=== PATIENT | female | born 1980 | race Caucasian/White ===

== ENCOUNTER 2024-07-09 00:17 | Emergency (ER) | payer OTHER ==
[2024-07-09] MEDS ORDERED: ONDANSETRON 4 MG/2 ML VIAL ONE (01:30)
[2024-07-09] MEDS ORDERED: MORPHINE 4 MG/ML SYR ONE (01:31)
[2024-07-09] MEDS ORDERED: GUAIFENESIN/DM 5 ML UCUP ONE (01:31)
[2024-07-09] MEDS ORDERED: NA CHLORIDE 0.9% 1,000 ML ONE (01:32)
[2024-07-09 02:14] LABS: PT Prothrombin Time 10.7 SECONDS (9.4-12.5); Protime INR 0.95
[2024-07-09 02:16] LABS: Absolute Basophils 0.1 K/uL (0-0.5); Absolute Eosinophils 0.4 K/uL (0-0.5); Absolute Monocytes 0.7 K/uL (0.1-1.3); Absolute Neutrophil 5.5 K/uL (1.8-8.0); Basophils % 0.6 % (0-1.3); Eosinophils % 4.9 % (0-4.4); Hematocrit 37.5 % (36.0-45.0); Hemoglobin 12.6 g/dL (12.0-15.0); Lymphocytes % 22.8 % (15.3-44.8); MCH 31.8 pg (27.0-35.0); MCHC 33.7 g/dL (32.0-36.0); MCV 94.4 fL (80-100); MPV 8.1 fL (7.6-11.3); Monocytes % 8.2 % (3.3-12.3); Neutrophils % 63.5 % (41.7-73.7); Nucleated Red Blood Cells % 0.1 % (0-0); Platelets 279 thou/uL (152-406); RBC Red Blood Cell Count 3.97 M/uL (3.86-4.86); Red Cell Distribution Width 13.3 % (12.1-15.2)
[2024-07-09 02:36] LABS: Albumin 3.3 g/dL (3.4-5.0); Albumin/Globulin Ratio 0.8 (1.1-1.8); Anion Gap 8.7 mEq/L (5.0-15.0); Bilirubin Direct 0.2 mg/dL (0-0.2); Bilirubin Indirect, Calculated 0.4 mg/dL (0.2-0.8); Bilirubin Total 0.6 mg/dL (0.2-1.0); Globulin 4.1 g/dL (2.3-3.5); Potassium 3.7 mEq/L (3.5-5.1); Protein, Total 7.4 g/dL (6.4-8.2); Troponin High Sensitivity 9.7 pg/mL (<58.9)
--- NOTE | 2024-07-09 06:02 | RAD REPORT ---
EXAM DESCRIPTION: Chest Single View CLINICAL HISTORY: 44 years Female, CHEST PAIN TECHNIQUE: 1 view (Single frontal view of the chest) COMPARISON: None. FINDINGS: LINES AND TUBES: None. CARDIOVASCULAR STRUCTURES: Normal heart size. No pulmonary venous congestion. LUNGS: No confluent areas of acute consolidation. PLEURA: No layering pleural effusions. No pneumothorax. BONES: No acute osseous abnormality of the thorax. IMPRESSION: 1. No acute cardiopulmonary disease. Electronically signed by: Matias Roca MD 07/09/2024 01:32 AM [facility] N Due to temporary technical issues with the PACS/GridPoint reporting system, reports are being eduardo d by the in-house radiologist without review as a courtesy to ensure prompt reporting the interpreting radiologist is fully responsible for the content of the report. Transcribed Date/Time: 07/09/2024 6:02 AM
--- NOTE | 2024-07-09 06:10 | EDPHYS ---
Physician Documentation [facility] Name: Rosa Moulton Age: 44 yrs Sex: Female : 1980 Arrival Date: 07/09/2024 Time: 00:17 Bed 7 Private MD: ED Physician Glen Plunkett HPI: 07/09 00:42 This 44 yrs old Other Race Female presents to ER via Unassigned with complaints of Pain sp4 All Over, Chest Pain. 06:13 Patient reports that on 06/26/2024 she fell off the roof and had to be airlifted to [address] for acute management of traumatic injury. Since then patient has developed moderate chest pain associated with dyspnea. Patient then reports that she had right distal radius fracture with displacement and this was fixed via open reduction internal fixation. 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 - Infectious Disease History:: Denies. - Social history:: Smoking status: Patient reports the use of cigarette tobacco products, smokes one-half pack cigarettes per day, Patient/guardian denies using alcohol, street drugs. - Family history:: not pertinent. ROS: 06:13 Constitutional: Negative for fever, chills, and weight loss, Cardiovascular: Positive sp4 chest wall pain, positive difficulty breathing 06:13 All other systems are negative, Exam: 06:10 Constitutional: This is a well developed, well nourished patient who is awake, alert, sp4 and in no acute distress. Head/Face: Normocephalic, atraumatic. Eyes: Pupils equal round and reactive to light, extra-ocular motions intact. Lids and lashes normal. Conjunctiva and sclera are not injected. Cornea within normal limits. Periorbital areas with no swelling, redness, or edema. ENT: Nares patent. No nasal discharge, no septal abnormalities noted. Tympanic membranes are normal and external auditory canals are clear. Oropharynx with no redness, swelling, or masses, exudates, or evidence of obstruction, uvula midline. Mucous membranes moist. Neck: Trachea midline, no thyromegaly or masses palpated, and no cervical lymphadenopathy. Supple, full range of motion without nuchal rigidity, or vertebral point tenderness. Chest/axilla: Normal chest wall appearance and motion. Nontender with no deformity. No lesions are appreciated. Cardiovascular: Regular rate and rhythm with a normal S1 and S2. No gallops, murmurs, or rubs. Normal PMI, no JVD. No pulse deficits. Respiratory: Lungs have equal breath sounds bilaterally, clear to auscultation and percussion. No rales, rhonchi or wheezes noted. No increased work of breathing, no retractions or nasal flaring. Abdomen/GI: Soft, with normal bowel sounds. No distension or tympany. No guarding or rebound. No evidence of tenderness throughout. Back: No spinal tenderness. No costovertebral tenderness. Skin: Warm, dry with normal turgor. Normal color with no rashes, no lesions, and no evidence of cellulitis. MS/ Extremity: Pulses equal, no cyanosis. Neurovascular intact. Full, normal range of motion. Neuro: Awake and alert, GCS 15, oriented to person, place, time, and situation. Cranial nerves II-XII grossly intact. Motor strength 5/5 in all extremities. Sensory grossly intact. Psych: Awake, alert, with orientation to person, place and time. Behavior, mood, and affect are within normal limits 06:10 ECG was reviewed by the Attending Physician. EKG at 0048 normal sinus rhythm, normal EKG. Vital Signs: 00:37 BP 151 / 105; Pulse 95; Resp 17 S; Temp 98.6(O); Pulse Ox 99% on R/A; Weight 46.27 kg lg3 (R); Height 5 ft. 0 in. (R); Pain 9/10; 01:30 BP 136 / 97; Pulse 80; Resp 18; Pulse Ox 97% on R/A; ay 01:30 BP 144 / 95; Pulse 85; Resp 18; Pulse Ox 99% on R/A; ay 02:30 BP 147 / 90; Pulse 86; Resp 17 S; Pulse Ox 100% on R/A; ha1 04:00 BP 138 / 78; Pulse 80; Resp 17 S; Pulse Ox 97% on R/A; ha1 05:30 BP 118 / 82; Pulse 80; Resp 13 S; Pulse Ox 94% ; ay 06:00 BP 164 / 90; Pulse 86; Resp 18; Pulse Ox 96% on R/A; ay 00:37 Body Mass Index 19.92 (46.27 kg, 152.4 cm) lg3 00:37 Pain Scale: Adult lg3 [place] Coma Score: 06:13 Eye Response: spontaneous(4). Motor Response: obeys commands(6). Verbal Response: sp4 oriented(5). Total: 15. MDM: 00:57 Medical Screening Exam initiated sp4 02:38 ED course: EXAM DESCRIPTION: Chest Single View CLINICAL HISTORY: 44 years Female, CHEST sp4 PAIN TECHNIQUE: 1 view (Single frontal view of the chest) COMPARISON: None. FINDINGS: LINES AND TUBES: None. CARDIOVASCULAR STRUCTURES: Normal heart size. No pulmonary venous congestion. LUNGS: No confluent areas of acute consolidation. PLEURA: No layering pleural effusions. No pneumothorax. BONES: No acute osseous abnormality of the thorax. IMPRESSION: 1. No acute cardiopulmonary disease. . 06:03 ED course: CLINICAL HISTORY: Chest pain. COMPARISON: XR Chest 07/09/2024. TECHNIQUE: CT sp4 CHESTABDOMEN PELVIS WITH IV CONTRAST on 07/09/2024 12:51 AM BATH STEWARD/STEWARDESS. MIPS reconstructions were generated. This exam was performed according to our departmental dose-optimization program, which includes automated exposure control, adjustment of the mA and/or kV according to patient size and/or use of iterative reconstruction technique. FINDINGS: Vascular: Thoracic aorta is normal in course and caliber without aneurysm or dissection. Pulmonary arteries are adequately opacified without acute or chronic filling defects. Abdominal aorta is normal in course and caliber without aneurysm. Pelvic arteries are patent without aneurysm or occlusion. Chest: The heart is borderline in size. There is no pericardial effusion. Intrathoracic lymph nodes are not enlarged. There is no pleural effusion, pleural thickening or pneumothorax. Central airways are patent. There is mild bibasilar atelectasis. Abdomen: The liver is normal in appearance. There is no biliary dilatation. Gallbladder is normal in appearance. The pancreas and spleen are normal in appearance. The adrenal glands and kidneys are unremarkable. There is no free air. There is no retroperitoneal adenopathy. Pelvis: There is large amount stool throughout the colon. Urinary bladder is unremarkable. There is no free fluid. Uterus is normal in size. Appendix is normal. Skeleton: There are no acute osseous findings. No suspicious bony lesions. IMPRESSION: No definite acute process. Electronically signed by: Dustin Samano MD 07/09/2024 06:00 AM. 06:12 Differential diagnosis: acute pericarditis, anxiety, chest wall pain, esophagitis, sp4 gastritis, pleurisy. HEART Score: History: Slightly Suspicious (0), ECG: Normal (0), Age: < or = 45 years (0), Risk Factors: No Risk Factors Known (0), Troponin: < or = 1 x Normal Limit (0), Total Score = 0. The patient was not given aspirin in the Emergency Department. Aspirin not given, patient refused. Data reviewed: vital signs, nurses notes, old medical records, lab test result(s), EKG, radiologic studies, CT scan, plain films. ED course: EKG and CT does not reveal any emergent medical problems. Patient stable for discharge home.. 12 00:50 Order name: Basic Metabolic Panel; Complete Time: 02:38 sp4 07/09 00:50 Order name: CBC with Diff; Complete Time: 02:38 sp4 07/09 00:50 Order name: LFT's; Complete Time: 02:38 sp4 07/09 00:50 Order name: Magnesium; Complete Time: 02:38 sp4 07/09 00:50 Order name: NT PRO-BNP; Complete Time: 02:38 sp4 07/09 00:50 Order name: PT-INR; Complete Time: 02:38 sp4 07/09 00:50 Order name: Troponin HS; Complete Time: 02:38 sp4 07/09 00:50 Order name: XRAY Chest (1 view) 4 07/09 00:51 Order name: CT Chest, Abdomen, Pelvis - W/Contrast 4 07/09 00:48 Order name: EKG; Complete Time: 00:49 4 07/09 00:50 Order name: Cardiac monitoring; Complete Time: 01:57 sp4 07/09 00:50 Order name: EKG - Nurse/Tech; Complete Time: :57 sp4 07/09 00:50 Order name: IV Saline Lock; Complete Time: : sp4 07/09 00:50 Order name: Labs collected and sent; Complete Time: sp4 07/09 00:50 Order name: O2 Per Protocol; Complete Time: 02: sp4 07/09 00:50 Order name: O2 Sat Monitoring; Complete Time: 02: sp4 07/09 00:56 Order name: Wound Care: done by MD ; Complete Time: 01:38 sp4 EC:48 Rate is 88 beats/min. Rhythm is regular, Sinus Rhythm. QRS [place] is Normal. PA interval sp4 is normal. QRS interval is normal. QT interval is normal. No Q waves. T waves are Normal. No ST changes noted. Clinical impression: No evidence of ischemia. Interpreted by me. Reviewed by me. Administered Medications: :56 Drug: morphine IVP or IV 4 mg IVP once over 4 mins Route: IVP; Infused Over: 4 mins; ay Site: left antecubital; 02:30 Follow up: Response: No adverse reaction; Marked relief of symptoms ay :56 Drug: Ondansetron IVP 4 mg IVP once; over 2 minutes Route: IVP; Site: left antecubital; ay 02:30 Follow up: Response: No adverse reaction; Marked relief of symptoms ay 01:56 Drug: Dextromethorphan-Guaifenesin PO Liquid 10 mg-100 mg/5 mL 10 ml PO once Route: PO; ay 02:30 Follow up: Response: No adverse reaction; Marked relief of symptoms ay :57 Drug: NS 0.9% IV 1000 ml IV at 125 ml/hr once; to be given as a bolus over 60 minutes ay Route: IV; Rate: 125 ml/hr; Site: left antecubital; 06:51 Follow up: IV Status: Completed infusion; IV Intake: 800ml ay 06:40 Drug: Diazepam PO 5 mg PO once Route: PO; ay 06:48 Follow up: Response: No adverse reaction ay Disposition Summary: 07/09/24 06:09 Discharge Ordered Notes: Location: Home sp4 Problem: new sp4 Symptoms: have improved sp4 Condition: Stable sp4 Diagnosis - Acute anterior chest wall contusion, noncardiac chest pain, history of right distal sp4 radius fracture status post open reduction internal fixation, anxiety disorder with acute anxiety attack Followup: sp4 - With: Private Physician - When: 7 - 10 days - Reason: Recheck today's complaints Discharge Instructions: - Discharge Summary Sheet sp4 - Chest Contusion, Adult, [id number] sp4 Forms: - Patient Portal Instructions sp4 Prescriptions: - Valium 5 mg Oral tablet - take 1 tablet ORAL route At bedtime As needed PRN anxiety; 12 tablet; Refills: sp4 0, Product Selection Permitted Signatures: Dispatcher [employer] EDElvira Cannon RN RN lg3 Glen Plunkett MD MD sp4 Paramjit De La Garza RN RN ay Corrections: (The following items were deleted from the chart) 00:51 00:51 BASIC METABOLIC PANEL+C.LAB.BRZ ordered. EDMS EDMS 00:51 00:51 CBC+H.LAB.BRZ ordered. EDMS EDMS 00:51 00:51 HEPATIC FUNCTION+C.LAB.BRZ ordered. EDMS EDMS 00:51 00:51 MAGNESIUM+C.LAB.BRZ ordered. EDMS EDMS 00:51 00:51 PROBNP+C.LAB.BRZ ordered. EDMS EDMS 00:51 00:51 PROTIME (+INR)+COAG.LAB.BRZ ordered. EDMS EDMS 00:51 00:51 Troponin High Sensitivity+C.LAB.BRZ ordered. EDMS EDMS 00:51 00:51 Chest Single View+RAD.RAD.BRZ ordered. EDMS EDMS
--- NOTE | 2024-07-09 06:10 | ER ---
Nurse's Notes [facility] Name: Rosa Moulton Age: 44 yrs Sex: Female : 1980 Arrival Date: 07/09/2024 Time: 00:17 Bed 7 Private MD: Diagnosis: Acute anterior chest wall contusion, noncardiac chest pain, history of right distal radius fracture status post open reduction internal fixation, anxiety disorder with acute anxiety attack Presentation: 07/09 00:37 Chief complaint: Patient states: 06/26 fell off roof and was life flighted to [place] [id number] with multiple breaks. center CP since accident but worsening and now it feels like there is fluid under the skin. reconstructive surgery to right arm on 07/06 and now my fingers are swelling and the color has changed. post surgical splint noted to right arm. Coronavirus screen: Client denies travel out of the [place] in the last 14 days. At this time, the client does not indicate any symptoms associated with coronavirus-19. Ebola Screen: No symptoms or risks identified at this time. Initial Sepsis Screen: Does the patient meet any 2 criteria? No. Patient's initial sepsis screen is negative. Does the patient have a suspected source of infection? No. Patient's initial sepsis screen is negative. Risk Assessment: Do you want to hurt yourself or someone else? Patient reports no desire to harm self or others. Onset of symptoms is unknown. 00:37 Method Of Arrival: Ambulatory 3 00:37 Acuity: ALAINA 3 lg3 Triage Assessment: 00:42 General: Appears in no apparent distress. uncomfortable, Behavior is calm, cooperative. lg3 Pain: Complains of pain in chest and right arm. EENT: No deficits noted. No signs and/or symptoms were reported regarding the EENT system. Neuro: No deficits noted. Ross Agitation-Sedation Scale (RASS): 0 - Alert and Calm Level of Consciousness is awake, alert, obeys commands, Oriented to person, place, time, situation. Cardiovascular: Reports chest pain, shortness of breath, Heart tones S1 S2 present. Respiratory: No deficits noted. Reports pain with cough pain with movement pain with respiration Airway is patent Respiratory effort is even, unlabored, Respiratory pattern is regular, symmetrical. GI: No deficits noted. No signs and/or symptoms were reported involving the gastrointestinal system. : No signs and/or symptoms were reported regarding the genitourinary system. Derm: Skin is intact, is healthy with good turgor, Skin is dry, Skin is normal, Skin temperature is warm swelling and discoloration noted to right fingers. Musculoskeletal: Circulation, motion, and sensation intact. Range of motion: intact in all extremities, Swelling present in left hand. 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 - Infectious Disease History:: Denies. - Social history:: Smoking status: Patient reports the use of cigarette tobacco products, smokes one-half pack cigarettes per day, Patient/guardian denies using alcohol, street drugs. - Family history:: not pertinent. Screenin:[address] [facility] ED Fall Risk Assessment (Adult) History of falling in the last 3 months, ha1 including since admission No falls in past 3 months (0 pts) Confusion or Disorientation No (0 pts) Intoxicated or Sedated No (0 pts) Impaired Gait No (0 pts) Mobility Assist Device Used No (0 pt) Altered Elimination No (0 pt) Score/Fall Risk Level 0 - 2 = Low Risk Oriented to surroundings, Maintained a safe environment, Educated pt \T\ family on fall prevention, incl call for assistance when getting out of bed, Hourly rounding (assess needs \T\ fall precautionary measures) done. Abuse screen: Denies threats or abuse. Denies injuries from another. Nutritional screening: No deficits noted. Tuberculosis screening: No symptoms or risk factors identified. Assessment: 01:30 General: Appears uncomfortable, Behavior is calm, cooperative. Pain: Complains of pain ha1 in chest and all over body Pain does not radiate. Pain currently is 8 out of 10 on a pain scale. Quality of pain is described as aching, Pain began gradually. Neuro: Level of Consciousness is awake, alert, obeys commands, Oriented to person, place, time, situation. Cardiovascular: Reports chest pain, Capillary refill Patient's skin is warm and dry. Respiratory: Airway is patent Respiratory effort is even, unlabored, Respiratory pattern is regular, symmetrical. GI: No signs and/or symptoms were reported involving the gastrointestinal system. : No signs and/or symptoms were reported regarding the genitourinary system. Musculoskeletal: Circulation, motion, and sensation intact. Range of motion: intact in all extremities. 02:20 Reassessment: Patient and/or family updated on plan of care and expected duration. Pain ay level reassessed. Patient is alert, oriented x 3, equal unlabored respirations, skin warm/dry/pink. 03:20 Reassessment: Patient and/or family updated on plan of care and expected duration. Pain ay level reassessed. Patient is alert, oriented x 3, equal unlabored respirations, skin warm/dry/pink. 04:00 Reassessment: Patient and/or family updated on plan of care and expected duration. Pain ha1 level reassessed. Patient is alert, oriented x 3, equal unlabored respirations, skin warm/dry/pink. Patient states feeling better. Patient states symptoms have improved. 05:20 Reassessment: Patient and/or family updated on plan of care and expected duration. Pain ay level reassessed. Patient is alert, oriented x 3, equal unlabored respirations, skin warm/dry/pink. 06:20 Reassessment: Patient and/or family updated on plan of care and expected duration. Pain ay level reassessed. Patient is alert, oriented x 3, equal unlabored respirations, skin warm/dry/pink. Vital Signs: 00:37 BP 151 / 105; Pulse 95; Resp 17 S; Temp 98.6(O); Pulse Ox 99% on R/A; Weight 46.27 kg lg3 (R); Height 5 ft. 0 in. (R); Pain 9/10; 01:30 BP 136 / 97; Pulse 80; Resp 18; Pulse Ox 97% on R/A; ay 01:30 BP 144 / 95; Pulse 85; Resp 18; Pulse Ox 99% on R/A; ay 02:30 BP 147 / 90; Pulse 86; Resp 17 S; Pulse Ox 100% on R/A; ha1 04:00 BP 138 / 78; Pulse 80; Resp 17 S; Pulse Ox 97% on R/A; ha1 05:30 BP 118 / 82; Pulse 80; Resp 13 S; Pulse Ox 94% ; ay 06:00 BP 164 / 90; Pulse 86; Resp 18; Pulse Ox 96% on R/A; ay 00:37 Body Mass Index 19.92 (46.27 kg, 152.4 cm) lg3 00:37 Pain Scale: Adult lg3 [place] Coma Score: 06:13 Eye Response: spontaneous(4). Motor Response: obeys commands(6). Verbal Response: sp4 oriented(5). Total: 15. ED Course: 00:19 Patient arrived in ED. jj6 00:42 Glen Plunkett MD is Attending Physician. sp4 00:42 Triage completed. lg3 00:42 Arm band placed on left wrist. lg3 00:48 Patient has correct armband on for positive identification. Bed in low position. Call ha1 light in reach. Side rails up X 1. Adult w/ patient. 00:48 Client placed on continuous cardiac and pulse oximetry monitoring. NIBP monitoring ha1 applied. security monitor on. 00:48 Provided Education on: PLAN OF CARE . ha1 00:49 EKG done, by ED staff, reviewed by Glen Plunkett MD. lg3 01:00 Door closed. Noise minimized. Warm blanket given. ha1 01:20 Paramjit De La Garza, RN is Primary Nurse. ay 01:24 XRAY Chest (1 view) In Process Unspecified. EDMS 01:38 Initial lab(s) drawn, by me, sent to lab. lg3 01:38 Basic Metabolic Panel Sent. lg3 01:38 CBC with Diff Sent. lg3 01:38 LFT's Sent. lg3 01:39 Magnesium Sent. lg3 01:39 NT PRO-BNP Sent. lg3 01:39 PT-INR Sent. lg3 01:39 Troponin HS Sent. lg3 02:31 Patient maintains SpO2 saturation greater than 95% on room air. ha1 03:36 CT Chest, Abdomen, Pelvis - W/Contrast In Process Unspecified. EDMS 06:50 No provider procedures requiring assistance completed. IV discontinued, intact, ay bleeding controlled, No redness/swelling at site. Pressure dressing applied. Administered Medications: 01:56 Drug: morphine IVP or IV 4 mg IVP once over 4 mins Route: IVP; Infused Over: 4 mins; ay Site: left antecubital; 02:30 Follow up: Response: No adverse reaction; Marked relief of symptoms ay 01:56 Drug: Ondansetron IVP 4 mg IVP once; over 2 minutes Route: IVP; Site: left antecubital; ay 02:30 Follow up: Response: No adverse reaction; Marked relief of symptoms ay 01:56 Drug: Dextromethorphan-Guaifenesin PO Liquid 10 mg-100 mg/5 mL 10 ml PO once Route: PO; ay 02:30 Follow up: Response: No adverse reaction; Marked relief of symptoms ay 01:57 Drug: NS 0.9% IV 1000 ml IV at 125 ml/hr once; to be given as a bolus over 60 minutes ay Route: IV; Rate: 125 ml/hr; Site: left antecubital; 06:51 Follow up: IV Status: Completed infusion; IV Intake: 800ml ay 06:40 Drug: Diazepam PO 5 mg PO once Route: PO; ay 06:48 Follow up: Response: No adverse reaction ay Medication: 02:31 VIS not applicable for this client. ha1 Intake: 06:51 IV: 800ml; Total: 800ml. ay Outcome: 06:09 Discharge ordered by . oleg 06:50 Discharged to home ambulatory, ay 06:50 Condition: stable 06:50 Discharge instructions given to patient, Instructed on discharge instructions, follow up and referral plans. medication usage, 06:52 Patient left the ED. ay Signatures: Dispatcher [employer] EDMS Elvira Mcclain RN RN 3 Shagufta Raymundo jj6 Zoraida Toney RN RN ha1 Potepalov, Sergey, MD MD sp4 Yakubu, Awudu, RN RN ay Corrections: (The following items were deleted from the chart) 00:48 00:37 Chief complaint: Patient states: 06/26 fell off roof and was life flighted to [address] with multiple breaks. center CP since accident but worsening and now it feels like there is fluid under the skin. reconstructive surgery to right arm on 07/06 and now my fingers are swelling and the color has changed [facility]
[2024-07-09] MEDS ORDERED: DIAZEPAM 5 MG TABLET ONE (06:37)
--- NOTE | 2024-07-09 06:43 | RAD REPORT ---
CLINICAL HISTORY: Chest pain. COMPARISON: XR Chest 07/09/2024. TECHNIQUE: CT CHEST ABDOMEN PELVIS WITH IV CONTRAST on 07/09/2024 12:51 AM SUPERVISOR GEAR REPAIR. MIPS reconstructions w ere generated. This exam was performed according to our departmental dose-optimization program, which includes autom ated exposure control, adjustment of the mA and/or kV according to patient size and/or use of iterative reconstruction technique. FINDINGS: Vascular: Thoracic aorta is normal in course and caliber without aneurysm or dissection. Pulmonary ar teries are adequately opacified without acute or chronic filling defects. Abdominal aorta is normal in course and caliber without aneurysm. Pelvic arteries are patent without aneurysm or occlusion. Chest: The heart is borderline in size. There is no pericardial effusion. Intrathoracic lymph nodes a re not enlarged. There is no pleural effusion, pleural thickening or pneumothorax. Central airways are patent. There i s mild bibasilar atelectasis. Abdomen: The liver is normal in appearance. There is no biliary dilatation. Gallbladder is normal in appearance. The pancreas and spleen are normal in appearance. The adrenal glands and kidneys are unremarkable. There is no free air. There is no retroperitoneal adenopathy. Pelvis: There is large amount stool throughout the colon. Urinary bladder is unremarkable. There is n o free fluid. Uterus is normal in size. Appendix is normal. Skeleton: There are no acute osseous findings. No suspicious bony lesions. IMPRESSION: No definite acute process. Electronically signed by: Dustin Samano MD 07/09/2024 06:00 AM SUPERVISOR GEAR REPAIR RP Due to temporary technical issues with the PACS/[employer] reporting system, reports are being eduardo d by the in-house radiologist without review as a courtesy to ensure prompt reporting the interpreting radiologist is fully responsible for the content of the report. Transcribed Date/Time: 07/09/2024 6:43 AM
[2024-07-09 13:08] VITALS: TEMP 98.6
[2024-07-09 13:12] VITALS: BP 164/90; O2SAT 96
== END 2024-07-09 06:52 | disposition home or self-care (01) ==
LOC: ER 00:17
DX: S20.211A Contusion of right front wall of thorax, initial encounter (principal); F41.0 Panic disorder [episodic paroxysmal anxiety]; F41.9 Anxiety disorder, unspecified; Z98.890 Other specified postprocedural states; F17.210 Nicotine dependence, cigarettes, uncomplicated
CPT/HCPCS: 96361; 85025; 80048; 36415; 83735; 85610; 80076; 84484; 83880; 71260; 74177; 71045; 96375; 96374; 99285; Q9967; J2405; J7030